=== PATIENT | female | born 1965 | race Caucasian/White ===

== ENCOUNTER 2023-10-16 01:35 | Emergency (ER) | payer BC, SELFPAY ==
[2023-10-16 01:38] VITALS: BP 132/89
--- NOTE | 2023-10-16 01:54 | ED.GENMED ---
History of Present Illness
<Jospeh Gordon PA-C - Last Filed: 10/16/23 16:41>
General
Chief Complaint: Headache
Source: patient
Time Seen by Provider: 10/16/23 01:46
Travel History
Have you had any contact with someone who has COVID-19?: No
Do you have any symptoms of coronavirus? Fever > 100 degrees, chills, cough, shortness of breath, sore throat, loss of taste or smell, muscle aches, or headache?: No
History of Present Illness
History of Present Illness:
58-year-old female with past medical history of previous GI bleeding, GERD, migraines presenting the emergency department for evaluation of migraine that she said started yesterday, worsened around 2 PM today, unrelieved with 2 separate doses of
Maxalt and Excedrin Migraine prompting her to come to the ER radha. Patient notes she has had 3 separate episodes of epistaxis with her migraines as well as some nausea and vomiting. Patient notes that radha's migraine is similar to her
previous migraines. Patient's main concern was that little while ago she had to be admitted for dehydration due to persistent vomiting and with 3 episodes of vomiting this evening decided to be further evaluated. She denies any fevers, chills,
rigors, visual disturbances, focal weakness or numbness or any other concerns.
Past History
<Joseph Gordon PA-C - Last Filed: 10/16/23 16:41>
Past History
ED Past Medical History: GERD, Psychiatric (Anxiety, depression), Other (GI bleeding), Other (Migraines) and Other (scleritis)
ED Past Surgical History: Gynecological (Hysterectomy), Orthopedic and Other (Hernia repair)
Social History
Tobacco: Non-smoker
Alcohol: None
Drug: None
Personal: Single
Living: with family
Review of Systems
<Joseph Gordon PA-C - Last Filed: 10/16/23 16:41>
Review of Systems
All Other Systems: ROS reviewed and negative except as documented in HPI and ROS
Phy Exam
<Joseph Gordon PA-C - Last Filed: 10/16/23 16:41>
Physical Exam
Physical Exam:
GENERAL: Alert , in no apparent distress
EYE: conjunctiva clear, pupils 3 mm bilateral, EOMI, photophobic
NECK: Supple
ENT: o/p clr, mmm.
CARDIAC: Regular rate and rhythm
LUNGS: Clear breath sounds bilaterally, no acute respiratory distress, no wheezes/rales/rhonchi
NEUROLOGICAL: Alert and oriented
SKIN: Warm and dry, skin intact.
MUSCULOSKELETAL: well perfused.
PSYCH: Normal and appropriate interaction.
Scores
<Joseph Gordon PA-C - Last Filed: 10/16/23 16:41>
Heart Failure Risk
Heart Failure Risk Score: Not Applicable
Heart Score for Chest Pain Patients
STEMI patient?: Not applicable
Withdrawal Assessment of Alcohol
Withdrawal Assessment Completed?: Not applicable
Course
<Joseph Gordon PA-C - Last Filed: 10/16/23 16:41>
Orders/Labs/Results
Orders:
Orders
10/16/23 01:53
0.9% Sodium Chloride 1000 ml [Nss] 1,000 ml IV BOLUS
Dexamethasone Sod Phosphate [Decadron] 10 mg IV NOW STA
Diphenhydramine [Benadryl] 25 mg IV NOW STA
Metoclopramide [Reglan] 10 mg IV NOW STA
10/16/23 02:19
Basic Metabolic Panel Urgent
Complete Blood Count/With Diff Urgent
10/16/23 03:41
Acetaminophen 1000MG/100Ml [Ofirmev] 1,000 mg in 100 ml IV ONCE
Acetaminophen IV Indication:: ED Narcotic Naive Pt-ONCE
10/16/23 03:42
Acetaminophen 1000MG/100Ml [Ofirmev] 1,000 mg in 100 ml .ROUTE .STK-MED
10/16/23 06:24
Ketorolac [Toradol] 15 mg IV NOW STA
Abnormal Lab Results
10/16/23
02:19
RBC 4.10 L 10^6/uL
(4.20-5.40)
Hgb 11.6 L g/dL
(12.0-16.0)
Hct 34.5 L %
(37.0-47.0)
Absolute Lymphs (auto) 3.6 H 10^3/uL
(1.2-3.4)
Absolute Monos (auto) 0.7 H 10^3/uL
(0.1-0.6)
Potassium 3.4 L mmol/L
(3.5-5.1)
Chloride 108 H mmol/L
(98-107)
10/16/23 02:19
10/16/23 02:19
Vital Signs
Initial and Last Documented VS:
Initial Vital Signs
Temp Pulse Resp BP Pulse Ox
97.8 F 77 18 132/89 99
10/16/23 01:38 10/16/23 01:38 10/16/23 01:38 10/16/23 01:38 10/16/23 01:38
Last Documented Vital Signs
Temp Pulse Resp BP Pulse Ox
97.8 F 79 20 108/82 95
10/16/23 01:38 10/16/23 06:24 10/16/23 06:24 10/16/23 06:24 10/16/23 06:24
Grazynalt;Walt Edwards DO - Last Filed: 10/16/23 06:39>
Orders/Labs/Results
Orders:
Orders
10/16/23 01:53
0.9% Sodium Chloride 1000 ml [Nss] 1,000 ml IV BOLUS
Dexamethasone Sod Phosphate [Decadron] 10 mg IV NOW STA
Diphenhydramine [Benadryl] 25 mg IV NOW STA
Metoclopramide [Reglan] 10 mg IV NOW STA
10/16/23 02:19
Basic Metabolic Panel Urgent
Complete Blood Count/With Diff Urgent
10/16/23 03:41
Acetaminophen 1000MG/100Ml [Ofirmev] 1,000 mg in 100 ml IV ONCE
Acetaminophen IV Indication:: ED Narcotic Naive Pt-ONCE
10/16/23 03:42
Acetaminophen 1000MG/100Ml [Ofirmev] 1,000 mg in 100 ml .ROUTE .STK-MED
10/16/23 06:24
Ketorolac [Toradol] 15 mg IV NOW STA
Abnormal Lab Results
10/16/23
02:19
RBC 4.10 L 10^6/uL
(4.20-5.40)
Hgb 11.6 L g/dL
(12.0-16.0)
Hct 34.5 L %
(37.0-47.0)
Absolute Lymphs (auto) 3.6 H 10^3/uL
(1.2-3.4)
Absolute Monos (auto) 0.7 H 10^3/uL
(0.1-0.6)
Potassium 3.4 L mmol/L
(3.5-5.1)
Chloride 108 H mmol/L
(98-107)
10/16/23 02:19
10/16/23 02:19
Vital Signs
Initial and Last Documented VS:
Initial Vital Signs
Temp Pulse Resp BP Pulse Ox
97.8 F 77 18 132/89 99
10/16/23 01:38 10/16/23 01:38 10/16/23 01:38 10/16/23 01:38 10/16/23 01:38
Last Documented Vital Signs
Temp Pulse Resp BP Pulse Ox
97.8 F 79 20 108/82 95
10/16/23 01:38 10/16/23 06:24 10/16/23 06:24 10/16/23 06:24 10/16/23 06:24
<Joseph Gordon PA-C - Last Filed: 10/16/23 16:41>
MDM/Problems Addressed
Differential Diagnosis Includes:
Migraine headache, tension headache, no concern for intracranial bleeding, electrolyte disturbance, dehydration
MDM/Problems Addressed:
58-year-old female with past medical history of migraines presenting the emergency department for evaluation of a migraine that was unrelieved with 2 doses of Maxalt and Excedrin Migraine. Patient without any focal neurologic findings on exam.
States headache is very similar to multiple previous migraines in the past. Patient requesting lab work as she is concerned for dehydration given her history. Will also treat with Reglan, Benadryl, Decadron and fluids. Reassessment following.
Patient is in agreement with foregoing CT scan.
<Joseph Gordon PA-C - Last Filed: 10/16/23 16:41>
*Pulse Oximetry
Patient hypoxic: no
*Critical Care Note
Total Time (30-74mins, 75-104mins- exclusive of procedures): Not Applicable
ED Attending Note
<Joseph Gordon PA-C - Last Filed: 10/16/23 16:41>
-
Portions of this chart may have been created with voice recognition software.� Occasional wrong word or��sound alike� substitutions may have occurred due to the inherent limitations of voice recognition software.
<Walt Edwards DO - Last Filed: 10/16/23 06:39>
ED Attending Note
Patient seen and examined by attending physician: Yes
I performed the substantive portion of visit, reviewed & personally made and approve the management plan that is documented in note by myself or MARLENI.: Yes
ED Attending Note:
Pleasant 58-year-old female with a history of migraines presents with a migraine tonight. Was signed out to me after patient's medications were administered. She is resting comfortably much of the night. She did awaken with a minor headache.
Requested a dose of Toradol. Patient being discharged in much improved condition. Patient was seen in conjunction with the MARLENI. I have reviewed and agree with his history and treatment plan. On my exam patient is awake alert and oriented and
minimal acute distress resting comfortably in the bed. Patient is mentating appropriately. There is no obvious nuchal rigidity noted.
Discharge Plan
Departure
Patient Disposition: Home (Routine Discharge)
Date of Disposition: 10/16/23
Time of Disposition: 06:26
Patient with high blood pressure during this ER visit?: No
Discharge Problem:
Headache, migraine
Instructions: Migraines (DC)
Prescriptions:
No Action
cetirizine [Zyrtec] 10 mg Tablet
10 mg PO DAILY PRN (Reason: allergies)
methotrexate sodium 25 mg/mL solution
25 mg SC TU
duloxetine 60 mg capsule,delayed release(DR/EC)
60 mg PO DAILY
famotidine 20 mg Tablet
20 mg PO DAILY Qty: 30 0RF
rizatriptan 10 mg Tablet,Disintegrating
10 mg translingual DAILY PRN (Reason: migraine)
Stand Alone Forms: Return to Work
Interventions
Interventions:
*Risk Screen - Suicide Last Done: 10/16/23 01:38
*General Assessment Last Done: 10/16/23 01:38
*Neglect/Abuse Screening Last Done: 10/16/23 01:38
ED- Fall Risk Assessment Last Done: 10/16/23 01:38
*ED COVID-19 Vaccine History Last Done: 10/16/23 01:38
*Nursing Disposition Last Done: 10/16/23 06:41
ED- Neurological Assessment Last Done: 10/16/23 02:45
Discharge Date and Time
Discharge Date/Time: 10/16/23 06:42
[2023-10-16] MEDS: REGLAN 10 MG IV (02:25)
[2023-10-16] MEDS: NSS 1000 IV (02:25)
[2023-10-16] MEDS: DECADRON 10 MG IV (02:26)
[2023-10-16] MEDS: BENADRYL 25 MG IV (02:26)
[2023-10-16 02:38] VITALS: BP 117/82
[2023-10-16 02:41] LABS: % Basophils 0.9 % (0-2); % Eosinophils 3.6 % (0-6); % Immature Granulocytes 0.2 % (0-0.5); % Lymphocytes 40.4 % (20.5-51.1); % Monocytes 7.9 % (1.7-9.3); Absolute Basophils 0.1 10^3/uL (0-0.2); Absolute Eosinophils 0.3 10^3/uL (0-0.7); Absolute Lymphocytes 3.6 10^3/uL (1.2-3.4); Absolute Monocytes 0.7 10^3/uL (0.1-0.6); Absolute Neutrophils 4.2 10^3/uL (1.4-6.5); Hematocrit 34.5 % (37.0-47.0); Hemoglobin 11.6 g/dL (12.0-16.0); Mean Corp Hgb Conc. 33.6 g/dL (33.0-37.0); Mean Corpuscular Hgb 28.3 pg (27.0-31.0); Mean Corpuscular Volume 84.1 fL (81.0-99.0); Mean Platelet Volume 9.9 fL (7.4-10.4); Nucleated Red Blood Cells % 0 %; Platelet Count 367 10^3/uL (130-400); White Blood Cell Count 8.9 10^3/uL (4.8-10.8)
[2023-10-16 02:48] LABS: Blood Urea Nitrogen 10 mg/dl (7-17); Calcium 8.8 mg/dl (8.4-10.2); Carbon Dioxide 26 mmol/L (22-30); Chloride 108 mmol/L (98-107); Glucose 82 mg/dl (70-99); Potassium 3.4 mmol/L (3.5-5.1); Sodium 138 mmol/L (135-145); eGFR > 60.00
[2023-10-16] MEDS: OFIRMEV 100 IV (03:43)
[2023-10-16 03:48] VITALS: BP 112/76
[2023-10-16 04:24] VITALS: BP 115/81
[2023-10-16 05:20] VITALS: BP 105/71
[2023-10-16 06:24] VITALS: BP 108/82
[2023-10-16] MEDS: TORADOL 15 MG IV (06:28)
== END 2023-10-16 06:42 | disposition home or self-care (01) ==
LOC: EMR 01:35
PROVIDERS: Physician Assistant Medical; EMERGENCY PHYSICIAN Student in an Organized Health Care Education/Training Program; FAMILY PHYSICIAN Family Medicine
DX: G43.909 Migraine, unspecified, not intractable, without status migrainosus (principal); K21.9 Gastro-esophageal reflux disease without esophagitis
CPT/HCPCS: 99284; 96374; 96375 ×4; 96361 ×2; 80048; 85025

== ENCOUNTER → 2023-11-13 15:07 | Outpatient (REF) | payer BC, SELFPAY | LOC: RAD 15:07 | PROVIDERS: ATTENDING PHYSICIAN Family Medicine | DX: R09.89 Other specified symptoms and signs involving the circulatory and respiratory systems (principal) | CPT/HCPCS: 71046 ==

== ENCOUNTER 2024-03-01 17:03 | Emergency (ER) | payer BC, SELFPAY ==
[2024-03-01 17:05] VITALS: BP 137/87
[2024-03-01] MEDS: AUGMENTIN 875 MG/125 MG 1 TABLET PO (17:49)
[2024-03-01] MEDS: ADACEL 0.5 ML IM (17:49)
--- NOTE | 2024-03-01 18:02 | ED.SKININJ ---
HPI-Injury
General
Chief Complaint: Bite
Source: patient
Exam Limitations: none
Time Seen by Provider: 03/01/24 17:13
Nursing documentation reviewed up to this point in time: agreed with
History of Present Illness-Injury
Is this injury a work related problem?: No
Is pt an associate of [facility]?: No
Initial Injury comments:
58-year-old female presenting to the emergency department today with concerns of dog bite to left foot prior to arrival. She claims she was living in a house and a dog from a nearby yard came and put her foot. The owners of the dog claims at all
with. Please move all report and report of the dog. She claims that she has moderate discomfort and has some difficulty with ambulation. She is unsure when her last tetanus shot was.
Past History
Past History
ED Past Medical History: GERD, Psychiatric (Anxiety, depression), Other (GI bleeding), Other (Migraines) and Other (scleritis)
ED Past Surgical History: Gynecological (Hysterectomy), Orthopedic and Other (Hernia repair)
Social History
Tobacco: Non-smoker
Alcohol: None
Drug: None
Personal: Single
Living: with family
Review of Systems
Review of Systems
Allergies reviewed?: Yes
All Other Systems: ROS reviewed and negative except as documented in HPI and ROS
Phy Exam
Physical Exam
Physical Exam:
GENERAL: Alert , in no apparent distress
EYE: pupils equal and reactive
NECK: Supple, no significant adenopathy.
ENT: o/p clr, mmm.
CARDIAC: Regular rate and rhythm .
LUNGS: Clear breath sounds bilaterally, no acute respiratory distress, no wheezes/rales/rhonchi
ABDOMEN: Soft, without focal tenderness, no r/g, no cvat
NEUROLOGICAL: Alert and oriented, no focal neuro deficits
SKIN: Puncture wound to the midfoot 1 cm in length with a small amount of bleeding no foreign body seen 5 mm puncture wound to the medial forefoot warm and dry, skin intact.
MUSCULOSKELETAL: No edema, well perfused.
PSYCH: Normal and appropriate interaction.
Course
Orders/Labs/Results
Orders:
Orders
03/01/24 17:21
CR Foot - Left Min 3 Views Urgent
Comment:
Reason For Exam: bite
03/01/24 17:28
Amoxicillin 875 mg/Clav 125 mg [Augmentin 875 mg/125 mg] 1 tablet PO NOW STA
Tetanus/Diphth/Acelpertussis [Adacel] 0.5 ml IM .ONCE ONE
03/01/24 18:36
Ketorolac [Toradol] 30 mg IV NOW STA
03/01/24 18:41
Crutches-Treatment ONCE
boot [Ortho Boot Left- Treatment] ONCE
Short or tall?: Short
03/01/24 18:58
Ampicillin/Sulbactam 3 G [Unasyn] 3 gm 0.9% Sodium Chloride 100 ml [Nss] 100 ml IV NOW
Vital Signs
Initial and Last Documented VS:
Initial Vital Signs
Temp Pulse Resp BP Pulse Ox
98.7 F 84 18 137/87 99
03/01/24 17:05 03/01/24 17:05 03/01/24 17:05 03/01/24 17:05 03/01/24 17:05
Last Documented Vital Signs
Temp Pulse Resp BP Pulse Ox
98.7 F 78 18 137/87 99
03/01/24 17:05 03/01/24 20:48 03/01/24 20:48 03/01/24 17:05 03/01/24 20:48
MDM/Problems Addressed
MDM/Problems Addressed:
58-year-old female presenting to the emergency department after being bit by a dog on her left foot prior to arrival. She claims that she may have been on the dog edge of the lawn otherwise acting normally according to the dog owners and the dog is
up-to-date with rabies vaccination therefore prophylaxis will be given today. Patient was given an updated tetanus vaccine, a dog bite form was reported. Started on Augmentin and wound thoroughly cleaned. These were left open to reduce risk of
infection. Otherwise x-ray showed small area of compression underlying where the dog bite wound was concerning for small focal bony injury. Concerning this patient was started on Unasyn given a protective boot crutches and advised for podiatry
follow-up.
*Critical Care Note
Total Time (30-74mins, 75-104mins- exclusive of procedures): Not Applicable
ED Attending Note
-
Portions of this chart may have been created with voice recognition software.� Occasional wrong word or��sound alike� substitutions may have occurred due to the inherent limitations of voice recognition software.
Discharge Plan
Departure
Patient Disposition: Home (Routine Discharge)
Patient with high blood pressure during this ER visit?: No
Condition: Good
Covid-19: Not Applicable
Discharge Problem:
Dog bite
Instructions: Animal Bites (DC), Foot Fracture (DC)
Prescriptions:
New
amoxicillin-pot clavulanate 875-125 mg tablet
1 tab PO Q8H 5 Days Qty: 15 0RF
No Action
cetirizine [Zyrtec] 10 mg Tablet
10 mg PO DAILY PRN (Reason: allergies)
methotrexate sodium 25 mg/mL solution
25 mg SC TU
duloxetine 60 mg capsule,delayed release(DR/EC)
60 mg PO DAILY
famotidine 20 mg Tablet
20 mg PO DAILY Qty: 30 0RF
rizatriptan 10 mg Tablet,Disintegrating
10 mg translingual DAILY PRN (Reason: migraine)
Referrals:
Gene Ruiz DPM [Active] - Follow up in 5-7 days
Alecia James MD [Family Provider] -
Stand Alone Forms: Return to Work
Activity Restrictions/Additional Instructions:
You came to the emergency department today after a dog bite. The area was cleaned thoroughly and you were started on antibiotics including an IV dose. Please continue taking Augmentin twice daily for the next 5 days. Your x-ray showed a bone from
the dog bite to your first metacarpal. Follow-up closely with here. Return to the emergency department any worsening, new or concerning symptoms.
Interventions
Interventions:
*Risk Screen - Suicide Last Done: 03/01/24 17:05
*General Assessment Last Done: 03/01/24 17:05
*Neglect/Abuse Screening Last Done: 03/01/24 17:05
ED- Fall Risk Assessment Last Done: 03/01/24 18:11
*ED COVID-19 Vaccine History Last Done: 03/01/24 17:05
*Nursing Disposition Last Done: 03/01/24 20:48
ED-Skin Assessment Last Done: 03/01/24 17:05
Discharge Date and Time
Discharge Date/Time: 03/01/24 20:20
Print Language: VIETNAMESE
[2024-03-01] MEDS: TORADOL 30 MG IV (18:44)
[2024-03-01] MEDS: UNASYN IV (19:34)
== END 2024-03-01 20:20 | disposition home or self-care (01) ==
LOC: EMR 17:03
PROVIDERS: EMERGENCY PHYSICIAN Emergency Medicine; FAMILY PHYSICIAN Family Medicine
DX: S91.352A Open bite, left foot, initial encounter (principal); W54.0XXA Bitten by dog, initial encounter; K21.9 Gastro-esophageal reflux disease without esophagitis; F41.8 Other specified anxiety disorders; Z23 Encounter for immunization; Z90.710 Acquired absence of both cervix and uterus; Z98.890 Other specified postprocedural states
CPT/HCPCS: 99283; 96374; 90471; 73630; 90715

== ENCOUNTER 2024-05-13 19:31 | Emergency (ER) | payer BC, SELFPAY ==
[2024-05-13 19:36] VITALS: BP 155/97
[2024-05-13 19:57] LABS: % Basophils 1.6 % (0-2); % Eosinophils 3.2 % (0-6); % Immature Granulocytes 0.2 % (0-0.5); % Monocytes 5.7 % (1.7-9.3); % Neutrophils 62.3 % (42.2-75.2); Absolute Basophils 0.1 10^3/uL (0-0.2); Absolute Eosinophils 0.3 10^3/uL (0-0.7); Absolute Lymphocytes 2.2 10^3/uL (1.2-3.4); Absolute Monocytes 0.5 10^3/uL (0.1-0.6); Absolute Neutrophils 5.1 10^3/uL (1.4-6.5); Hematocrit 38.2 % (37.0-47.0); Hemoglobin 12.8 g/dL (12.0-16.0); Mean Corp Hgb Conc. 33.5 g/dL (33.0-37.0); Mean Corpuscular Hgb 27.5 pg (27.0-31.0); Mean Platelet Volume 9.7 fL (7.4-10.4); Nucleated Red Blood Cells % 0 %; Platelet Count 433 10^3/uL (130-400); Red Blood Cell Count 4.66 10^6/uL (4.20-5.40); Red Cell Dist. Width 13.2 % (11.5-14.5); White Blood Cell Count 8.2 10^3/uL (4.8-10.8)
[2024-05-13 20:06] LABS: ALT (SGPT) 24 U/L (0-35); AST (SGOT) 30 U/L (14-36); Albumin 4.3 g/dl (3.5-5.0); Alkaline Phosphatase 172 U/L (38-126); Blood Urea Nitrogen 19 mg/dl (7-17); Calcium 9.8 mg/dl (8.4-10.2); Carbon Dioxide 28 mmol/L (22-30); Chloride 104 mmol/L (98-107); Glucose 113 mg/dl (70-99); Lipase 143 U/L (23-300); Potassium 4.2 mmol/L (3.5-5.1); Sodium 141 mmol/L (135-145); Total Bilirubin 0.5 mg/dl (0.2-1.3); Total Protein 6.9 g/dl (6.3-8.2); eGFR > 60.00
[2024-05-13 21:36] VITALS: BP 146/89
[2024-05-13 21:37] VITALS: BMI 34.0
[2024-05-13 21:49] LABS: Urine Albumin Negative (Neg - Trace); Urine Bilirubin Negative (Negative); Urine Character Clear (Clear); Urine Color Yellow; Urine Glucose Negative (Negative); Urine Ketone Negative (Negative); Urine Leukocyte 2+ (Negative); Urine Nitrite Negative (Negative); Urine Occult Blood Negative (Negative); Urine Urobilinogen Negative (Neg - 1+)
[2024-05-13] MEDS: ZOFRAN 4 MG IV (21:53)
[2024-05-13] MEDS: NSS 1000 IV (21:54)
[2024-05-13 22:00] VITALS: BP 134/83
[2024-05-13 22:12] LABS: Urine Bacteria Few (Negative); Urine Red Blood Cell 0-2 /HPF (0-2)
--- NOTE | 2024-05-13 22:19 | ED.GENMED ---
History of Present Illness
General
Chief Complaint: Abdominal Symptoms
Time Seen by Provider: 05/13/24 21:54
History of Present Illness
History of Present Illness:
58-year-old female presents to the emergency department for evaluation of a persistent headache associated with nausea, vomiting, and diarrhea beginning earlier this afternoon. She reports intractable vomiting in excess of 10 times and at this
point is simply dry heaving. She works as a nurse at pediatric [employer], denies any known viral syndrome circulating throughout the facility. Denies any abdominal pain, fevers, chills, or sweats at this time
Past History
Past History
ED Past Medical History: GERD, Psychiatric (Anxiety, depression), Other (GI bleeding), Other (Migraines) and Other (scleritis)
ED Past Surgical History: Gynecological (Hysterectomy), Orthopedic and Other (Hernia repair)
Social History
Tobacco: Non-smoker
Alcohol: None
Drug: None
Personal: Single
Living: with family
Review of Systems
Review of Systems
Allergies reviewed?: Yes
All Other Systems: ROS reviewed and negative except as documented in HPI and ROS
Phy Exam
Physical Exam
Physical Exam:
GEN: Well appearing, NAD, WDWN
HEENT: Oral mucosa moist, no scleral icterus
Cardiac: Regular rate
Lung: No respiratory distress, no tachypnea
MSK: No gross deformity or injuries
Skin: Good color, no pallor or jaundice, no rashes
Neuro: AO x3, moves all extremities freely
Psych: Calm, cooperative
Course
Orders/Labs/Results
Orders:
Orders
05/13/24 19:41
IV Insert/Care/Rem.- Treatment PRN
05/13/24 19:44
Complete Blood Count/With Diff Urgent
Comprehensive Metabolic Panel Urgent
Lipase Urgent
05/13/24 21:40
Urinalysis Reflex To Culture Urgent
Date Specimen was Collected: 05/13/24
Time Specimen was Collected: 21:29
Urine Microscopic Reflex Cult Urgent
Urine Culture Urgent
LEIDA Source: U
Specimen Description:
Date Specimen was Collected: 05/13/24
Time Specimen was Collected: 21:29
05/13/24 21:48
Ondansetron Injectable [Zofran] 4 mg .ROUTE .STK-MED ONE
05/13/24 21:52
Ondansetron Injectable [Zofran] 4 mg IV NOW STA
05/13/24 21:54
0.9% Sodium Chloride 1000 ml [Nss] 1,000 ml IV BOLUS
05/13/24 22:18
Ketorolac [Toradol] 15 mg IV NOW STA
Metoclopramide [Reglan] 10 mg IV NOW STA
05/14/24 00:07
Ondansetron Orally Disint [Zofran Odt (Orally Disintegrating)] 4 mg PO NOW STA
Abnormal Lab Results
05/13/24 05/13/24
19:44 21:40
Plt Count 433 H 10^3/uL
(130-400)
BUN 19 H mg/dl
(7-17)
Glucose 113 H mg/dl
(70-99)
Alkaline Phosphatase 172 H U/L
(38-126)
Leukocyte Esterase Rfl 2+ A
(Negative)
Urine Bacteria (Reflex) Few A
(Negative)
05/13/24 19:44
05/13/24 19:44
Vital Signs
Initial and Last Documented VS:
Initial Vital Signs
Temp Pulse Resp BP Pulse Ox
98 F 89 20 155/97 97
05/13/24 19:36 05/13/24 19:36 05/13/24 19:36 05/13/24 19:36 05/13/24 19:36
Last Documented Vital Signs
Temp Pulse Resp BP Pulse Ox
98.9 F 86 18 122/81 94
05/14/24 00:15 05/14/24 00:00 05/14/24 00:00 05/14/24 00:00 05/14/24 00:00
MDM/Problems Addressed
MDM/Problems Addressed:
Given the abrupt onset of nausea vomiting diarrhea and headache as well as generalized bodyaches this is likely a self-limited viral syndrome. She has no significant abdominal tenderness warranting imaging at this time. She was given IV fluids and
was able to tolerate p.o. fluids after supportive treatment. Will discharge, antiemetic prescription provided, ED return parameters discussed
*Critical Care Note
Total Time (30-74mins, 75-104mins- exclusive of procedures): Not Applicable
ED Attending Note
-
Portions of this chart may have been created with voice recognition software.� Occasional wrong word or��sound alike� substitutions may have occurred due to the inherent limitations of voice recognition software.
Discharge Plan
Departure
Patient Disposition: Home (Routine Discharge)
Date of Disposition: 05/14/24
Time of Disposition: 00:07
Patient with high blood pressure during this ER visit?: No
Discharge Problem:
Gastroenteritis
Instructions: Nausea and Vomiting, Adult (DC)
Prescriptions:
New
ondansetron 4 mg tablet,disintegrating
4 mg PO TIDPRN PRN (Reason: nausea/vomiting) Qty: 10 0RF
No Action
cetirizine [Zyrtec] 10 mg Tablet
10 mg PO DAILY PRN (Reason: allergies)
methotrexate sodium 25 mg/mL solution
25 mg SC TU
duloxetine 60 mg capsule,delayed release(DR/EC)
60 mg PO DAILY
famotidine 20 mg Tablet
20 mg PO DAILY Qty: 30 0RF
rizatriptan 10 mg Tablet,Disintegrating
10 mg translingual DAILY PRN (Reason: migraine)
amoxicillin-pot clavulanate 875-125 mg tablet
1 tab PO Q8H 5 Days Qty: 15 0RF
Referrals:
Alecia James MD [Family Provider] -
Stand Alone Forms: Return to Work
Interventions
Interventions:
*Risk Screen - Suicide Last Done: 05/13/24 19:36
*General Assessment Last Done: 05/13/24 19:36
*Neglect/Abuse Screening Last Done: 05/13/24 19:36
ED- Fall Risk Assessment Last Done: 05/13/24 19:36
*ED COVID-19 Vaccine History Last Done: 05/13/24 19:36
*Nursing Disposition Last Done: 05/14/24 00:15
NI-Kacqmf-Pymsxyryoj Assessment Last Done: 05/13/24 22:49
Discharge Date and Time
Discharge Date/Time: 05/14/24 00:24
Print Language: LITHUANIAN
[2024-05-13] MEDS: TORADOL 15 MG IV (22:22)
[2024-05-13] MEDS: REGLAN 10 MG IV (22:23)
[2024-05-13 23:00] VITALS: BP 130/82
[2024-05-14] VITALS: BP 122/81
[2024-05-14] MEDS: ZOFRAN ODT (ORALLY DISINTEGRATING) 4 MG PO (00:09)
== END 2024-05-14 00:24 | disposition home or self-care (01) ==
LOC: EMR 19:31
PROVIDERS: Emergency Medicine; EMERGENCY PHYSICIAN Student in an Organized Health Care Education/Training Program; FAMILY PHYSICIAN Family Medicine
DX: K52.9 Noninfective gastroenteritis and colitis, unspecified (principal); K21.9 Gastro-esophageal reflux disease without esophagitis; F41.9 Anxiety disorder, unspecified; F32.A Depression, unspecified; Z90.710 Acquired absence of both cervix and uterus
CPT/HCPCS: 99282; 96374; 96375; 96361; 80053; 81003; 81015; 83690; 85025; 87086

== ENCOUNTER 2024-09-12 | Emergency (ER) | payer BC, SELFPAY ==
[2024-09-12 00:01] VITALS: BMI 34.8
[2024-09-12 00:16] VITALS: BP 121/84
--- NOTE | 2024-09-12 00:53 | ED.GENMED ---
History of Present Illness
General
Chief Complaint: Abdominal Symptoms
Source: patient
Exam Limitations: none
Time Seen by Provider: 09/12/24 00:27
History of Present Illness
History of Present Illness:
58-year-old female complaining of ongoing refractory migraines and vomiting and insomnia. This has been an issue for weeks to months. She has seen her neurologist and primary physician. She is on Klonopin, Ativan, promethazine, Zofran, Topamax.
She is also on Wegovy. Her parents left for [place] and she is currently alone at home and concerned with her symptoms. She is tired of not being able to sleep. She is having frequent panic attacks. Migraines are typical for her migraines. They
tend to be cyclical in the last 4 weeks or months but then not occur for years. She has no abdominal pain. No photophobia no neurologic symptoms
Past History
Past History
ED Past Medical History: GERD, Psychiatric (Anxiety, depression), Other (GI bleeding), Other (Migraines) and Other (scleritis)
ED Past Surgical History: Gynecological (Hysterectomy), Orthopedic and Other (Hernia repair)
Social History
Tobacco: Non-smoker
Alcohol: None
Drug: None
Personal: Single
Living: with family
Review of Systems
Review of Systems
All Other Systems: Not applicable
Constitutional: Denies fever or chills
Respiratory: Reports no symptoms
Cardiac: Reports no symptoms
Phy Exam
Physical Exam
Physical Exam:
GENERAL: Alert and oriented in no apparent distress
EYE: Orbits normal.
NECK: Supple
ENT: Pharynx without erythema
CARDIAC: Regular rate and rhythm without any obvious murmurs.
LUNGS: Clear breath sounds,normal
ABDOMEN: Soft, without focal tenderness or distention
NEUROLOGICAL: Alert and oriented , grossly non-focal
SKIN: Warm and dry, no rash or lesion, no discoloration, skin intact.
MUSCULOSKELETAL: No edema,no deformity.Good color
PSYCH: Normal and appropriate interaction.
Course
Orders/Labs/Results
Orders:
Orders
09/12/24 00:42
Cardiac Monitoring- Treatment ONCE
IV Insert/Care/Rem.- Treatment PRN
0.9% Sodium Chloride 1000 ml [Nss] 1,000 ml IV BOLUS
09/12/24 00:43
Electrocardiogram (*1) Stat
Reason for Study: Abdominal Pain
EKG- Treatment ONCE
09/12/24 00:52
Complete Blood Count/With Diff Urgent
Comprehensive Metabolic Panel Urgent
Lipase Urgent
09/12/24 02:06
Acetaminophen 1000MG/100Ml [Ofirmev] 1,000 mg in 100 ml IV ONCE
Acetaminophen IV Indication:: ED Narcotic Naive Pt-ONCE
Diphenhydramine [Benadryl] 25 mg IV NOW STA
Metoclopramide [Reglan] 10 mg IV NOW STA
09/12/24 02:14
US Abdomen Complete/Upper Urgent
Comment:
Reason For Exam: Recurrent vomiting/elevated lipase
Abnormal Lab Results
09/12/24
00:52
Hgb 11.7 L g/dL
(12.0-16.0)
Hct 35.5 L %
(37.0-47.0)
Absolute Lymphs (auto) 3.7 H 10^3/uL
(1.2-3.4)
Absolute Eos (auto) 0.8 H 10^3/uL
(0-0.7)
Neutrophils % 39.2 L %
(42.2-75.2)
Eosinophils % 9.5 H %
(0-6)
Carbon Dioxide 20 L mmol/L
(22-30)
Glucose 138 H mg/dl
(70-99)
Alkaline Phosphatase 189 H U/L
(38-126)
Total Protein 6.1 L g/dl
(6.3-8.2)
Lipase 491 H U/L
(23-300)
09/12/24 00:52
09/12/24 00:52
Vital Signs
Initial and Last Documented VS:
Initial Vital Signs
Temp Pulse Resp BP Pulse Ox
97.5 F 81 20 121/84 96
09/12/24 00:16 09/12/24 00:16 09/12/24 00:16 09/12/24 00:16 09/12/24 00:16
Last Documented Vital Signs
Temp Pulse Resp BP Pulse Ox
97.5 F 76 21 90/66 96
09/12/24 00:16 09/12/24 01:56 09/12/24 01:56 09/12/24 01:56 09/12/24 01:15
MDM/Problems Addressed
Differential Diagnosis Includes:
Patient presenting primarily with recurrent vomiting insomnia ongoing migraine headaches. The headaches are typical for her migraine. She denies neurologic symptoms. She denies a typical headache. She is frustrated having these ongoing symptoms.
Exam is unremarkable. Her abdomen is benign. I do not feel this is an abdominal issue. I stressed to her we were unlikely to totally resolve the symptoms tonight. That clinically we would rule out a serious etiology for her issues. No
indication for radiologic testing at this time. Will check labs EKG fluids symptomatic treatment.
*Pulse Oximetry
Patient hypoxic: no
*EKG
Interpreted by ED Provider?: Yes
Interpretation: normal
Heart Rate: 74
Rate: normal
Rhythm: sinus
Prewitt: normal axis
Interval: normal interval
QRS Pattern: normal QRS
Ischemia: no ischemia
Data Reviewed
Review of Other/Old Records Reveals: Labs, Records, Testing and Progress Notes
Update Note
Update Note:
0215.... Patient stopped her Wegovy 1 month ago. She has a minimal lipase elevation nonspecific in nature. Doubt acute pancreatitis. No right upper quadrant tenderness. Doubt acute gallbladder issue. We will get an ultrasound. This will likely
be symptomatic treatment and follow-up.
ED Attending Note
-
Portions of this chart may have been created with voice recognition software.� Occasional wrong word or��sound alike� substitutions may have occurred due to the inherent limitations of voice recognition software.
Discharge Plan
Departure
Discharge Problem:
Recurrent vomiting, Recurrent headaches, Minimal lipase elevation
Instructions: Nausea and Vomiting, Adult (DC), Headache, Adult (DC)
Prescriptions:
No Action
cetirizine [Zyrtec] 10 mg Tablet
10 mg PO DAILY PRN (Reason: allergies)
methotrexate sodium 25 mg/mL solution
25 mg SC TU
duloxetine 60 mg capsule,delayed release(DR/EC)
60 mg PO DAILY
famotidine 20 mg Tablet
20 mg PO DAILY Qty: 30 0RF
rizatriptan 10 mg Tablet,Disintegrating
10 mg translingual DAILY PRN (Reason: migraine)
amoxicillin-pot clavulanate 875-125 mg tablet
1 tab PO Q8H 5 Days Qty: 15 0RF
ondansetron 4 mg tablet,disintegrating
4 mg PO TIDPRN PRN (Reason: nausea/vomiting) Qty: 10 0RF
Referrals:
Alecia James MD [Family Provider] - Tomorrow
Activity Restrictions/Additional Instructions:
Call your primary physician in the morning for close follow-up
Also discussed your headache situation with your neurologist
I would recommend repeating your lipase in 3 to 5 days to make sure it is not going up
Interventions
Interventions:
*Risk Screen - Suicide Last Done: 09/12/24 00:16
*General Assessment Last Done: 09/12/24 00:16
*Neglect/Abuse Screening Last Done: 09/12/24 00:16
ED- Fall Risk Assessment Last Done: 09/12/24 00:16
*ED COVID-19 Vaccine History Last Done: 09/12/24 00:16
DX-Zhvmjv-Sntufydyxi Assessment Last Done: 09/12/24 01:10
ED- Neurological Assessment Last Done: 09/12/24 01:10
Discharge Date and Time
Print Language: GREEK
[2024-09-12] MEDS: NSS 1000 IV (00:55)
[2024-09-12 01:04] LABS: % Basophils 1.4 % (0-2); % Eosinophils 9.5 % (0-6); % Immature Granulocytes 0.2 % (0-0.5); % Lymphocytes 42.9 % (20.5-51.1); % Monocytes 6.8 % (1.7-9.3); % Neutrophils 39.2 % (42.2-75.2); Absolute Basophils 0.1 10^3/uL (0-0.2); Absolute Eosinophils 0.8 10^3/uL (0-0.7); Absolute Lymphocytes 3.7 10^3/uL (1.2-3.4); Absolute Monocytes 0.6 10^3/uL (0.1-0.6); Absolute Neutrophils 3.4 10^3/uL (1.4-6.5); Hematocrit 35.5 % (37.0-47.0); Hemoglobin 11.7 g/dL (12.0-16.0); Mean Corpuscular Hgb 27.7 pg (27.0-31.0); Mean Corpuscular Volume 83.9 fL (81.0-99.0); Mean Platelet Volume 9.9 fL (7.4-10.4); Nucleated Red Blood Cells % 0.3 %; Platelet Count 320 10^3/uL (130-400); Red Blood Cell Count 4.23 10^6/uL (4.20-5.40); Red Cell Dist. Width 13.5 % (11.5-14.5); White Blood Cell Count 8.7 10^3/uL (4.8-10.8)
[2024-09-12 01:25] LABS: ALT (SGPT) 20 U/L (0-35); AST (SGOT) 23 U/L (14-36); Albumin 3.7 g/dl (3.5-5.0); Alkaline Phosphatase 189 U/L (38-126); Blood Urea Nitrogen 17 mg/dl (7-17); Calcium 8.9 mg/dl (8.4-10.2); Carbon Dioxide 20 mmol/L (22-30); Chloride 107 mmol/L (98-107); Estimated Creatinine Clearance 73 ml/min; Glucose 138 mg/dl (70-99); Potassium 3.8 mmol/L (3.5-5.1); Sodium 137 mmol/L (135-145); Total Bilirubin 0.5 mg/dl (0.2-1.3); Total Protein 6.1 g/dl (6.3-8.2); eGFR > 60.00
[2024-09-12 01:29] LABS: Lipase 491 U/L (23-300)
[2024-09-12 01:56] VITALS: BP 90/66
[2024-09-12] MEDS: BENADRYL 25 MG IV (02:23)
[2024-09-12] MEDS: REGLAN 10 MG IV (02:24)
[2024-09-12] MEDS: OFIRMEV 100 IV (02:24)
[2024-09-12 03:40] VITALS: BP 93/66
[2024-09-12 05:43] VITALS: BP 102/74
== END 2024-09-12 05:51 | disposition home or self-care (01) ==
LOC: EMR
PROVIDERS: EMERGENCY PHYSICIAN Emergency Medicine; FAMILY PHYSICIAN Family Medicine
DX: G43.909 Migraine, unspecified, not intractable, without status migrainosus (principal); R11.10 Vomiting, unspecified; R74.8 Abnormal levels of other serum enzymes; G47.00 Insomnia, unspecified; K21.9 Gastro-esophageal reflux disease without esophagitis
CPT/HCPCS: 96365; 96375; 96361; 99284; 76700; 80053; 83690; 85025; 93005

== ENCOUNTER → 2024-09-14 15:17 | Outpatient (REF) | payer BC, SELFPAY ==
[2024-09-14 17:01] LABS: % Basophils 1.6 % (0-2); % Eosinophils 6.3 % (0-6); % Immature Granulocytes 0.5 % (0-0.5); % Monocytes 6.7 % (1.7-9.3); % Neutrophils 43.9 % (42.2-75.2); Absolute Basophils 0.1 10^3/uL (0-0.2); Absolute Eosinophils 0.5 10^3/uL (0-0.7); Absolute Lymphocytes 3.1 10^3/uL (1.2-3.4); Absolute Monocytes 0.5 10^3/uL (0.1-0.6); Absolute Neutrophils 3.3 10^3/uL (1.4-6.5); Hematocrit 41.7 % (37.0-47.0); Hemoglobin 13.2 g/dL (12.0-16.0); Mean Corp Hgb Conc. 31.7 g/dL (33.0-37.0); Mean Corpuscular Volume 85.5 fL (81.0-99.0); Mean Platelet Volume 10.5 fL (7.4-10.4); Nucleated Red Blood Cells % 0 %; Platelet Count 388 10^3/uL (130-400); Red Blood Cell Count 4.88 10^6/uL (4.20-5.40); Red Cell Dist. Width 13.4 % (11.5-14.5); White Blood Cell Count 7.5 10^3/uL (4.8-10.8)
[2024-09-14 17:33] LABS: ALT (SGPT) 25 U/L (0-35); AST (SGOT) 26 U/L (14-36); Albumin 3.9 g/dl (3.5-5.0); Alkaline Phosphatase 153 U/L (38-126); Amylase 76 U/L (30-110); Blood Urea Nitrogen 17 mg/dl (7-17); Calcium 9.3 mg/dl (8.4-10.2); Carbon Dioxide 27 mmol/L (22-30); Chloride 104 mmol/L (98-107); Direct Bilirubin 0.2 mg/dl (0.0-0.4); GGTP 17 U/L (12-43); Glucose 95 mg/dl (70-99); Lipase 164 U/L (23-300); Potassium 4.3 mmol/L (3.5-5.1); Sodium 137 mmol/L (135-145); Total Bilirubin 0.6 mg/dl (0.2-1.3); Total Protein 6.7 g/dl (6.3-8.2); eGFR > 60.00
[2024-09-14 17:38] LABS: C-Reactive Protein < 5.00 mg/L (0.0-10.00)
[2024-09-14 18:08] LABS: TSH Reflex To Free T4 2.22 uIU/ml (0.47-4.68)
[2024-09-14 18:56] LABS: Erythrocyte Sed Rate 73 mm/hour (0-20)
[2024-09-16 23:05] LABS: Insulin, Random 11 uIU/mL
== END ==
LOC: RAD 15:17
PROVIDERS: ATTENDING PHYSICIAN Family Medicine; FAMILY PHYSICIAN Family Medicine; REFERRING PHYSICIAN Internal Medicine Rheumatology
DX: H15.009 Unspecified scleritis, unspecified eye (principal); Z79.899 Other long term (current) drug therapy; M06.4 Inflammatory polyarthropathy; R10.13 Epigastric pain; R74.8 Abnormal levels of other serum enzymes; G43.909 Migraine, unspecified, not intractable, without status migrainosus; Z13.29 Encounter for screening for other suspected endocrine disorder; Z13.1 Encounter for screening for diabetes mellitus
CPT/HCPCS: 36415; 73130; 80053; 82150; 82248; 82977; 83525; 83690; 84443; 85025; 85652; 86140

== ENCOUNTER 2024-09-24 01:44 | Emergency (ER) | payer BC, SELFPAY ==
[2024-09-24 01:52] VITALS: BP 118/83
[2024-09-24 02:10] VITALS: BMI 35.5
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
[2024-09-24] MEDS: OMNIPAQUE 50 ML PO (02:40)
[2024-09-24] MEDS: NSS 1000 IV (02:43)
[2024-09-24] MEDS: OFIRMEV 100 IV (02:43)
[2024-09-24] MEDS: REGLAN 10 MG IV (02:44)
[2024-09-24] MEDS: BENADRYL 25 MG IV (02:45)
[2024-09-24 02:51] LABS: % Basophils 1.3 % (0-2); % Eosinophils 7.1 % (0-6); % Immature Granulocytes 0.6 % (0-0.5); % Lymphocytes 41.1 % (20.5-51.1); % Monocytes 8.1 % (1.7-9.3); % Neutrophils 41.8 % (42.2-75.2); Absolute Basophils 0.1 10^3/uL (0-0.2); Absolute Eosinophils 0.5 10^3/uL (0-0.7); Absolute Lymphocytes 2.8 10^3/uL (1.2-3.4); Absolute Monocytes 0.6 10^3/uL (0.1-0.6); Absolute Neutrophils 2.9 10^3/uL (1.4-6.5); Hematocrit 36.3 % (37.0-47.0); Hemoglobin 12.2 g/dL (12.0-16.0); Mean Corp Hgb Conc. 33.6 g/dL (33.0-37.0); Mean Corpuscular Hgb 27.6 pg (27.0-31.0); Mean Corpuscular Volume 82.1 fL (81.0-99.0); Mean Platelet Volume 9.7 fL (7.4-10.4); Nucleated Red Blood Cells % 0 %; Platelet Count 320 10^3/uL (130-400); Red Blood Cell Count 4.42 10^6/uL (4.20-5.40); Red Cell Dist. Width 13.3 % (11.5-14.5); White Blood Cell Count 6.9 10^3/uL (4.8-10.8)
[2024-09-24 02:58] VITALS: BP 120/79
[2024-09-24 03:13] LABS: ALT (SGPT) 18 U/L (0-35); AST (SGOT) 20 U/L (14-36); Albumin 3.7 g/dl (3.5-5.0); Alkaline Phosphatase 163 U/L (38-126); Blood Urea Nitrogen 19 mg/dl (7-17); Calcium 9.1 mg/dl (8.4-10.2); Carbon Dioxide 22 mmol/L (22-30); Chloride 108 mmol/L (98-107); Estimated Creatinine Clearance 74 ml/min; Glucose 115 mg/dl (70-99); Lipase 151 U/L (23-300); Potassium 4.1 mmol/L (3.5-5.1); Sodium 138 mmol/L (135-145); Total Bilirubin 0.4 mg/dl (0.2-1.3); Total Protein 6.4 g/dl (6.3-8.2); eGFR > 60.00
[2024-09-24 03:31] VITALS: BP 104/73
[2024-09-24] MEDS: PROTONIX IV 40 MG IV (05:34)
== END 2024-09-24 05:45 | disposition home or self-care (01) ==
LOC: EMR 01:44
PROVIDERS: EMERGENCY PHYSICIAN Emergency Medicine; FAMILY PHYSICIAN Nurse Practitioner Acute Care
DX: K29.00 Acute gastritis without bleeding (principal); K20.90 Esophagitis, unspecified without bleeding; G43.909 Migraine, unspecified, not intractable, without status migrainosus; G47.00 Insomnia, unspecified; F41.9 Anxiety disorder, unspecified; Z87.11 Personal history of peptic ulcer disease; Z90.710 Acquired absence of both cervix and uterus; Z79.899 Other long term (current) drug therapy
CPT/HCPCS: 96374; 96375; 96361; 99284; 74177; 80053; 83690; 85025; Q9967

== ENCOUNTER → 2024-10-04 08:03 | Outpatient (REF) | payer BC, SELFPAY ==
[2024-10-04 13:05] LABS: % Basophils 1.8 % (0-2); % Eosinophils 6.9 % (0-6); % Immature Granulocytes 0.3 % (0-0.5); % Lymphocytes 35.1 % (20.5-51.1); % Monocytes 7.9 % (1.7-9.3); Absolute Basophils 0.1 10^3/uL (0-0.2); Absolute Eosinophils 0.4 10^3/uL (0-0.7); Absolute Lymphocytes 2.1 10^3/uL (1.2-3.4); Absolute Monocytes 0.5 10^3/uL (0.1-0.6); Absolute Neutrophils 2.9 10^3/uL (1.4-6.5); Hematocrit 40.7 % (37.0-47.0); Hemoglobin 13.2 g/dL (12.0-16.0); Mean Corp Hgb Conc. 32.4 g/dL (33.0-37.0); Mean Corpuscular Hgb 27.6 pg (27.0-31.0); Mean Platelet Volume 10.5 fL (7.4-10.4); Nucleated Red Blood Cells % 0 %; Platelet Count 367 10^3/uL (130-400); Red Blood Cell Count 4.79 10^6/uL (4.20-5.40); Red Cell Dist. Width 13.5 % (11.5-14.5)
[2024-10-04 13:48] LABS: ALT (SGPT) 20 U/L (0-35); AST (SGOT) 24 U/L (14-36); Albumin 3.9 g/dl (3.5-5.0); Alkaline Phosphatase 158 U/L (38-126); Blood Urea Nitrogen 14 mg/dl (7-17); Calcium 9.7 mg/dl (8.4-10.2); Carbon Dioxide 27 mmol/L (22-30); Chloride 106 mmol/L (98-107); Glucose 120 mg/dl (70-99); Lipase 170 U/L (23-300); Potassium 4.5 mmol/L (3.5-5.1); Sodium 139 mmol/L (135-145); Total Bilirubin 0.7 mg/dl (0.2-1.3); Total Protein 6.8 g/dl (6.3-8.2); eGFR > 60.00
== END ==
LOC: HWRAD 08:03
PROVIDERS: FAMILY PHYSICIAN Family Medicine
DX: R11.2 Nausea with vomiting, unspecified (principal); R10.10 Upper abdominal pain, unspecified
CPT/HCPCS: 36415; 76700; 80053; 83690; 85025

== ENCOUNTER → 2024-10-21 10:19 | Outpatient (REF) | payer BC, SELFPAY | LOC: RAD 10:19 | PROVIDERS: ATTENDING PHYSICIAN Surgery; FAMILY PHYSICIAN Family Medicine | DX: R11.2 Nausea with vomiting, unspecified (principal); Z98.890 Other specified postprocedural states; Z87.19 Personal history of other diseases of the digestive system | CPT/HCPCS: 74246 ==

== ENCOUNTER 2025-03-25 11:05 | Emergency (ER) | payer BC, OTHER, SELFPAY ==
[2025-03-25 11:06] VITALS: BP 134/81
[2025-03-25 11:12] VITALS: BP 134/81
[2025-03-25 12:00] VITALS: BP 131/95
--- NOTE | 2025-03-25 13:21 | ED.MUSCINJ ---
HPI-Injury
General
Chief Complaint: Fall
Source: patient
Exam Limitations: none
Time Seen by Provider: 03/25/25 12:37
History of Present Illness-Injury
Initial Injury comments:
59-year-old female presents complaining of right wrist and right hip pain after a fall she sustained at work. 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 She tripped over a mass that was on the floor. She has been unable to bear weight on the
right hip since then. No other complaints at this time
Past History
Past History
ED Past Medical History: GERD, Psychiatric (Anxiety, depression), Other (Gastric ulcer with GI bleeding, hiatal hernia, chronic migraine, autoimmune disorder/scleritis), Other (Migraines) and Other (scleritis)
ED Past Surgical History: Gynecological (Hysterectomy), Orthopedic and Other (Hernia repair)
Social History
Tobacco: Non-smoker
Alcohol: None
Drug: None
Personal: Single
Living: alone
Employment: Employed
Family History
Family History: Other (Noncontributory)
Phy Exam
Physical Exam
Physical Exam:
General: Well-appearing female no acute respiratory distress
HEENT: Normocephalic atraumatic
Musculoskeletal exam: Right wrist without deformity or swelling. She is mildly diffusely tender the right hip is tender over the lateral aspect of the hip. There is a contusion noted over the lateral aspect of the hip. No deformities. There is
increased pain with external rotation of the hip.
Injury Course
Orders/Labs/Results
Orders:
Orders
03/25/25 11:14
CR Hip - RT w/wo Pel 2-3 Vw* Urgent
Comment:
Reason For Exam: fall pain
Include a pelvis x-ray?: Yes
CR Wrist - Right Min 3 Views Urgent
Comment:
Reason For Exam: fall pain
03/25/25 14:16
Oxycodone/Acetaminophen [Percocet 5/325] 1 tablet PO NOW STA
MDM/Problems Addressed
Differential Diagnosis Includes:
Mechanical fall with right wrist and right hip pain. Consider contusion versus strain versus fracture
X-rays of the right wrist and right hip are personally visualized and are negative for acute fracture or dislocation. I suspect a right hip strain. Will try walker for ambulation
*Pulse Oximetry
SaO2: 100
Oxygen Mode of Delivery: Room air
Patient hypoxic: no
*Critical Care Note
Total Time (30-74mins, 75-104mins- exclusive of procedures): Not Applicable
Update Note
Update Note:
X-rays were officially negative for the right wrist and right hip. She ambulated well with a walker. Will prescribe medicine for pain. She will follow-up with [employer].
ED Attending Note
-
Portions of this chart may have been created with voice recognition software.� Occasional wrong word or��sound alike� substitutions may have occurred due to the inherent limitations of voice recognition software.
Discharge Plan
Departure
Patient Disposition: Home (Routine Discharge)
Date of Disposition: 03/25/25
Time of Disposition: 14:23
Patient with high blood pressure during this ER visit?: No
Discharge Problem:
Fall, Strain of right hip
Instructions: Muscle, joint, and bone pain (DC)
Prescriptions:
New
oxycodone-acetaminophen [Percocet] 5-325 mg tablet
1 tab PO TID PRN (Reason: Pain) Qty: 10 0RF
methocarbamol 750 mg tablet
750 mg PO Q8H PRN (Reason: spasm) Qty: 10 0RF
No Action
cetirizine [Zyrtec] 10 mg Tablet
10 mg PO DAILY PRN (Reason: allergies)
methotrexate sodium 25 mg/mL solution
25 mg SC TU
duloxetine 60 mg capsule,delayed release(DR/EC)
60 mg PO DAILY
famotidine 20 mg Tablet
20 mg PO DAILY Qty: 30 0RF
rizatriptan 10 mg Tablet,Disintegrating
10 mg translingual DAILY PRN (Reason: migraine)
ondansetron 4 mg tablet,disintegrating
4 mg PO TIDPRN PRN (Reason: nausea/vomiting) Qty: 10 0RF
pantoprazole [Protonix] 40 mg tablet,delayed release (DR/EC)
40 mg PO DAILY Qty: 30 0RF
Referrals:
Alecia James MD [Family Provider, Family Practice]
Stand Alone Forms: Return to Work
Activity Restrictions/Additional Instructions:
Use walker for ambulation. Use prescribed medicine as needed for pain. Use muscle relaxer as needed for spasm. Follow-up with Work[employer]'s [employer]. doctor
Interventions
Interventions:
*Risk Screen - Suicide Last Done: 03/25/25 11:06
*General Assessment Last Done: 03/25/25 11:06
*Neglect/Abuse Screening Last Done: 03/25/25 11:06
Discharge Date and Time
Print Language: TONGAN
[2025-03-25 14:00] VITALS: BP 128/79
[2025-03-25] MEDS: PERCOCET 5/325 1 TABLET PO (14:24)
== END 2025-03-25 14:50 | disposition home or self-care (01) ==
LOC: EMR 11:05
PROVIDERS: EMERGENCY PHYSICIAN Emergency Medicine; FAMILY PHYSICIAN Family Medicine
DX: S76.011A Strain of muscle, fascia and tendon of right hip, initial encounter (principal); W19.XXXA Unspecified fall, initial encounter; Y99.0 Civilian activity done for income or pay; K21.9 Gastro-esophageal reflux disease without esophagitis; F41.8 Other specified anxiety disorders; D89.89 Other specified disorders involving the immune mechanism, not elsewhere classified; Z87.11 Personal history of peptic ulcer disease; Z90.710 Acquired absence of both cervix and uterus
CPT/HCPCS: 99283; 73110; 73502

== ENCOUNTER → 2025-05-05 12:01 | Outpatient (REF) | payer OTHER, SELFPAY ==
[2025-05-05 13:05] LABS: Hematocrit 42.6 % (37.0-47.0); Hemoglobin 13.5 g/dL (12.0-16.0); Mean Corp Hgb Conc. 31.7 g/dL (33.0-37.0); Mean Corpuscular Volume 83.9 fL (81.0-99.0); Nucleated Red Blood Cells % 0 %; Red Cell Dist. Width 12.9 % (11.5-14.5)
[2025-05-05 13:40] LABS: ALT (SGPT) 19 U/L (0-35); AST (SGOT) 23 U/L (14-36); Albumin 4.2 g/dl (3.5-5.0); Alkaline Phosphatase 155 U/L (38-126); Blood Urea Nitrogen 12 mg/dl (7-17); Calcium 9.5 mg/dl (8.4-10.2); Carbon Dioxide 26 mmol/L (22-30); Chloride 107 mmol/L (98-107); Glucose 101 mg/dl (70-99); Potassium 4.3 mmol/L (3.5-5.1); Sodium 137 mmol/L (135-145); Total Protein 7.2 g/dl (6.3-8.2); Very Low Density Lipoprotein 15 mg/dl (0-30); eGFR > 60.00
[2025-05-05 13:45] LABS: Glycohemoglobin (HgbA1c) 5.9 % (4.0-5.6)
[2025-05-05 13:51] LABS: HDL Cholesterol 109 mg/dl; LDL Cholesterol, Calculated 116 mg/dl
[2025-05-05 13:54] LABS: Vitamin D, 25-OH*** 22.1 ng/mL (30-80)
[2025-05-05 14:07] LABS: TSH 1.63 uIU/ml (0.47-4.68)
[2025-05-05 14:26] LABS: Hepatitis C Antibody Negative (Negative)
== END ==
LOC: REG 12:01
PROVIDERS: ATTENDING PHYSICIAN Family Medicine
DX: Z00.00 Encounter for general adult medical examination without abnormal findings (principal); Z13.1 Encounter for screening for diabetes mellitus; Z13.0 Encounter for screening for diseases of the blood and blood-forming organs and certain disorders involving the immune mechanism; Z13.220 Encounter for screening for lipoid disorders; Z11.3 Encounter for screening for infections with a predominantly sexual mode of transmission; Z13.29 Encounter for screening for other suspected endocrine disorder; E55.9 Vitamin D deficiency, unspecified
CPT/HCPCS: 36415; 80053; 80061; 82306; 83036; 84443; 85025; 86780; 86803; 87389

== ENCOUNTER → 2025-05-17 13:32 | Outpatient (REF) | payer OTHER, SELFPAY | LOC: MRI 13:32 | PROVIDERS: ATTENDING PHYSICIAN Emergency Medicine Sports Medicine; FAMILY PHYSICIAN Family Medicine | DX: M70.61 Trochanteric bursitis, right hip (principal) | CPT/HCPCS: 27093; 73525; 73722 ==